=== PATIENT | female | born 1995 | race Caucasian/White ===

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

== ENCOUNTER 2018-10-27 19:09 | Emergency (ER) | payer BC, OTHER ==
[~2018-10-27] VITALS: Ht 157.5 cm; Wt 112.0 kg
[2018-10-27 19:13] VITALS: BP 134/78
--- NOTE | 2018-10-27 19:27 | NUR ---
23 Y/O F PRESENTED TO ED WITH C/O GENERALIZED ABDOMINAL PAIN WITH N/V FOR X3 DAYS. 5/10 PAIN, ACHING. AAOX4. PER PT "I'VE BEEN TO ER THREE TIMES ALREADY AND NOTHING THEY GAVE ME IS WORKING." PT SELF MEDICATED WITH ZOFRAN WITH NO RELIEF. ABDOMEN SOFT AND NON-TENDER. BOWEL SOUNDS PRESENTS [id number]. FAMILY AT BEDSIDE. BEDRAILS X2 UP. GURNEY IN LOCKED POSTION. WILL CONTINUE TO MONITOR.
[2018-10-27] MEDS ORDERED: NACL 0.9% 1,000 ML IV ONE (20:16)
[2018-10-27] MEDS ORDERED: ONDANSETRON 4 MG/2 ML VIAL IVP ONE (20:20)
[2018-10-27 20:49] LABS: BASOPHILS % (AUTO) 0.3 % (0.0-2.0); EOSINOPHILS # (AUTO) 0.1 K/uL (0-0.4); EOSINOPHILS % (AUTO) 0.5 % (0.0-4.0); HEMATOCRIT 40.6 % (36-48); HEMOGLOBIN 13.6 g/dL (12.0-16.0); LYMPHOCYTES # (AUTO) 2.6 K/uL (2.5-16.5); LYMPHOCYTES % (AUTO) 18.7 % (20.5-51.1); MEAN CORPUSCULAR HEMOGLOBIN 26 pg (27-31); MEAN CORPUSCULAR HGB CONC 33 g/dL (33-37); MEAN CORPUSCULAR VOLUME 78.3 fL (80-94); MONOCYTES # (AUTO) 0.7 K/uL (0.8-1.0); MONOCYTES % (AUTO) 5.1 % (1.7-9.3); NEUTROPHILS # (AUTO) 10.3 K/uL (1.8-7.7); NEUTROPHILS % (AUTO) 75.4 % (42.2-75.2); PLATELET COUNT (AUTO) 334 K/uL (140-450); RED BLOOD CELL COUNT(AUTO) 5.19 MIL/uL (4.20-5.40); RED CELL DISTRIBUTION WIDTH 13.6 % (11.6-13.7); WHITE BLOOD COUNT (AUTO) 13.7 K/uL (4.8-10.8)
--- NOTE | 2018-10-27 20:50 | NUR ---
PT UNABLE TO PROVIDE URINE SAMPLE. DR. GOMEZ MADE AWARE AND GAVE PERMISSION TO RUN FLUIDS FIRST.
[2018-10-27 21:04] LABS: ANION GAP 16.7 (8-16); CREATININE 0.9 mg/dL (0.6-1.3); POTASSIUM 3.7 mmol/L (3.5-5.1)
[2018-10-27 21:10] LABS: ALBUMIN 3.9 g/dL (3.4-5.0); TOTAL BILIRUBIN 0.7 mg/dL (0.0-1.0)
--- NOTE | 2018-10-27 21:30 | NUR ---
PT ABLE TO PROVIDE URINE SAMPLE. SAMPLE SENT TO LAB.
[2018-10-27 21:55] LABS: APPEARANCE,URINE CLEAR (CLEAR); BILIRUBIN,URINE 1+ (NEGATIVE); BLOOD, URINE TRACE-L (NEGATIVE); COLOR,URINE YELLOW (YELLOW); LEUKOCYTE ESTERASE ,URINE TRACE (NEGATIVE); NITRITE, URINE NEGATIVE (NEGATIVE); UGLUCOSE NEGATIVE (NEGATIVE)
[2018-10-27 22:02] LABS: BARBITURATE, URINE NEG. ng/ml (NEG <=200); BENZODIAZEPINE, URINE NEG. ng/mL (NEG <=200); CANNABINOID, URINE NEG. ng/mL (NEG <=50); COCAINE, URINE NEG. ng/mL (NEG <=300); OPIATE, URINE NEG. ng/mL (NEG <=2000); PHENCYCLIDINE SCREEN,URINE NEG. ng/mL (NEG <=25); RBC,URINE 0-5 /HPF (0-5); WBC,URINE 0-5 /HPF (0-5)
[2018-10-27 22:03] LABS: URINE AMORPHOUS URATE 1+ /HPF (None Seen)
[2018-10-27 22:40] VITALS: BP 130/85
--- NOTE | 2018-10-27 22:40 | NUR ---
Patient discharged with v/s stable. Written and verbal after care instructions given and explained. Patient alert, oriented and verbalized understanding of instructions. Ambulatory with steady gait. All questions addressed prior to discharge. ID band removed. Patient advised to follow up with PMD. Rx of ZOFRAN WAS given. Patient educated on indication of medication including possible reaction and side effects. Opportunity to ask questions provided and answered.
== END 2018-10-27 22:40 | disposition home or self-care (01) ==
LOC: MED 19:09
DX: R11.2 Nausea with vomiting, unspecified (principal); F41.1 Generalized anxiety disorder; J45.909 Unspecified asthma, uncomplicated; R50.9 Fever, unspecified; F12.10 Cannabis abuse, uncomplicated
CPT/HCPCS: 36415; 80053; 80305; 81001; 81025; 83690; 85025; 96361; 96374; 99283; J2405; J7030

== ENCOUNTER 2018-11-06 01:08 | Emergency (ER) | payer BC ==
[~2018-11-06] VITALS: Ht 157.5 cm; Wt 111.1 kg
[2018-11-06 01:10] VITALS: BP 126/83
--- NOTE | 2018-11-06 01:19 | NUR ---
EKG PERFORMED AT BEDSIDE
[2018-11-06 01:23] VITALS: BP 126/83
--- NOTE | 2018-11-06 01:23 | NUR ---
23 Y/O F PRESENTED TO ED WITH C/O DIFFICULTY BREATHING AND CHEST PAIN SUDDEN ONSET X3 HOURS. AAOX4. PER PT "FEELS LIKE SOMEONE IS SITTING ON MY CHEST." 7/10 PAIN, PRESSURE AND STABBING SENSATION. O2 SATURATION MAINTAINED AT 99% ON ROOM AIR. BILATERAL LUNG MARKHAM CLEAR THROUGHOUT. PT TACHYCARDIC WITH HR AT 103. HOB ELEVATED FOR COMFORT. FAMILY AT BEDSIDE. PT PUT ON MONITORING SYSTEM. BED IN LOWEST POSITION WITH BEDRAILX1 UP. WILL CONTINUE TO MONITOR.
[2018-11-06] MEDS ORDERED: KETOROLAC 60 MG/2 ML VIAL IM ONE ×2 (01:25→01:37)
[2018-11-06] MEDS ORDERED: IBUPROFEN 800 MG TAB PO ONE (01:30)
--- NOTE | 2018-11-06 02:51 | NUR ---
DR. MALAVE AT BEDSIDE EVALUATING PT
== END 2018-11-06 03:05 | disposition home or self-care (01) ==
LOC: MED 01:08
DX: R07.89 Other chest pain (principal); J45.909 Unspecified asthma, uncomplicated; F41.9 Anxiety disorder, unspecified; F32.9 Major depressive disorder, single episode, unspecified
CPT/HCPCS: 93005; 99283; J1885

== ENCOUNTER 2018-11-14 12:04 | Emergency (ER) | payer BC ==
[~2018-11-14] VITALS: Ht 157.5 cm; Wt 112.9 kg
[2018-11-14 12:19] VITALS: BP 127/76
--- NOTE | 2018-11-14 12:23 | NUR ---
PT TO [facility] MAE. AA0X4. VSS AT THIS TIME.
--- NOTE | 2018-11-14 13:44 | NUR ---
Patient ambulated to bed 7
--- NOTE | 2018-11-14 13:58 | NUR ---
PT BIB FRIEND C/O COUGH AND CHEST TIGHTNESS X 1 WEEK. PATIENT STATES THIS AM HER SPUTUM WAS BLOOD TINGED AND HER THROAT FEELS TIGHT. RR EVEN AND NON-LABORED, BREATH SOUNDS CLEAR, AIRWAY PATENT, CAP REFIL <2 SEC, NO EDEMA. VSS. ER MD TO SEE PT. PMH- ANXIETY, DEPRESSION, ASTHMA
[2018-11-14 14:42] VITALS: BP 130/80
== END 2018-11-14 14:42 | disposition home or self-care (01) ==
LOC: MED 12:04
DX: J45.909 Unspecified asthma, uncomplicated (principal); F43.9 Reaction to severe stress, unspecified
CPT/HCPCS: 99283

== ENCOUNTER 2018-12-17 11:46 | Emergency (ER) | payer BC, MEDICAID ==
[~2018-12-17] VITALS: Ht 157.5 cm; Wt 107.6 kg
[2018-12-17 11:52] VITALS: BP 127/75
[2018-12-17] MEDS ORDERED: ONDANSETRON 4 MG/2 ML VIAL IVP ONE (13:05)
[2018-12-17] MEDS ORDERED: NACL 0.9% 1,000 ML IV ONE (13:05)
[2018-12-17 15:13] VITALS: BP 122/73
== END 2018-12-17 15:13 | disposition home or self-care (01) ==
LOC: MED 11:46
DX: K31.84 Gastroparesis (principal); J45.909 Unspecified asthma, uncomplicated
CPT/HCPCS: 81002; 81025; 96361; 96374; 99283; J2405; J7030

== ENCOUNTER 2019-09-19 23:06 | Emergency (ER) | payer OTHER, SELFPAY ==
[~2019-09-19] VITALS: Ht 157.5 cm; Wt 112.9 kg
--- NOTE | 2019-09-19 23:13 | NUR ---
pt ambulated to bed 8. pt wearing face mask.
[2019-09-19 23:16] VITALS: BP 141/92
--- NOTE | 2019-09-19 23:27 | NUR ---
DR. CORONEL AT BEDSIDE FOR EVALUATION.
--- NOTE | 2019-09-19 23:27 | NUR ---
24 Y/O FEMALE PRESENTED TO ED C/O HEMATURIA X 1 DAY. PT STATES SHE HAS HAD V/D X 5 DAYS W/ MUCUS IN THE [place]. PT STATES SHE HAS AN INTERMITTENT COUGH . PT DENIES SOB/ABD PAIN/DYSURIA/BACKPAIN. PT STATES SHE TESTED + FOR COVID. PT DENIES FEVER/CHILLS. LMP 08/29/19. PT BREATHING EVEN AND UNLABORED. A/O X4. PT RESTING IN BED , LOCKED AND IN LOWEST POSITION, HOB ELEVATED, SIDE RAIL X1. HX: DEPRESSION, BIPOLAR, ANXIETY, ASTHMA, +COVID19 NKA
--- NOTE | 2019-09-19 23:36 | NUR ---
LAB AT BEDSIDE.
[2019-09-19 23:52] LABS: BASOPHILS % (AUTO) 0.3 % (0.0-2.0); EOSINOPHILS % (AUTO) 0.1 % (0.0-4.0); HEMATOCRIT 36.3 % (36-48); LYMPHOCYTES # (AUTO) 1.8 K/uL (2.5-16.5); LYMPHOCYTES % (AUTO) 15.9 % (20.5-51.1); MEAN CORPUSCULAR HEMOGLOBIN 27 pg (27-31); MEAN CORPUSCULAR HGB CONC 33 g/dL (33-37); MEAN CORPUSCULAR VOLUME 82.3 fL (80-94); MONOCYTES # (AUTO) 0.7 K/uL (0.8-1.0); NEUTROPHILS # (AUTO) 8.6 K/uL (1.8-7.7); NEUTROPHILS % (AUTO) 77.7 % (42.2-75.2); PLATELET COUNT (AUTO) 234 K/uL (140-450); RED BLOOD CELL COUNT(AUTO) 4.41 MIL/uL (4.20-5.40); RED CELL DISTRIBUTION WIDTH 13.1 % (11.6-13.7); WHITE BLOOD COUNT (AUTO) 11.1 K/uL (4.8-10.8)
--- NOTE | 2019-09-19 23:55 | NUR ---
PT TAKEN TO CT
--- NOTE | 2019-09-20 00:02 | NUR ---
PT RETURN FROM CT
[2019-09-20 00:04] LABS: ANION GAP 13.4 (8-16); POTASSIUM 3.4 mmol/L (3.5-5.1); TOTAL BILIRUBIN 0.5 mg/dL (0.0-1.0)
[2019-09-20 00:15] LABS: PROTHROMBIN TIME 8.9 secs (10.8-13.4)
[2019-09-20 00:35] LABS: APPEARANCE,URINE CLOUDY (CLEAR); BILIRUBIN,URINE 2+ (NEGATIVE); BLOOD, URINE 1+ (NEGATIVE); COLOR,URINE ORANGE (YELLOW); LEUKOCYTE ESTERASE ,URINE NEGATIVE (NEGATIVE); NITRITE, URINE POSITIVE (NEGATIVE); UGLUCOSE NEGATIVE (NEGATIVE)
[2019-09-20 00:48] LABS: RBC,URINE 0-5 /HPF (0-5); WBC,URINE 0-5 /HPF (0-5)
[2019-09-20 00:49] LABS: URINE AMORPHOUS URATE 4+ /HPF (None Seen)
[2019-09-20 01:35] VITALS: BP 141/92
--- NOTE | 2019-09-20 01:35 | NUR ---
Patient discharged with v/s stable. Written and verbal after care instructions given and explained. Patient alert, oriented and verbalized understanding of instructions. Ambulatory with steady gait. All questions addressed prior to discharge. ID band removed. Patient advised to follow up with PMD. Rx of BACTRIM AND AZITHROMYCIN given. Patient educated on indication of medication including possible reaction and side effects. Opportunity to ask questions provided and answered.
== END 2019-09-20 01:35 | disposition home or self-care (01) ==
LOC: EEVIPCON 23:06 → MED 23:06
DX: N39.0 Urinary tract infection, site not specified (principal); F41.9 Anxiety disorder, unspecified; F32.9 Major depressive disorder, single episode, unspecified; J18.1 Lobar pneumonia, unspecified organism; J45.909 Unspecified asthma, uncomplicated
CPT/HCPCS: 36415; 80053; 81001; 85025; 85610; 85730; 99283; 99284

== ENCOUNTER 2019-09-21 13:44 | Emergency (ER) | payer OTHER, SELFPAY ==
[~2019-09-21] VITALS: Ht 157.5 cm; Wt 112.9 kg
[2019-09-21 13:59] VITALS: BP 116/57
[2019-09-21] MEDS ORDERED: IBUPROFEN 600 MG TAB PO STA (14:11)
[2019-09-21] MEDS ORDERED: ACETAMINOPHEN EXTRA STRENGTH 500 MG TAB PO STA (14:11)
--- NOTE | 2019-09-21 14:12 | NUR ---
DR. BRAR EVALUATING PT AT BEDSIDE
[2019-09-21] MEDS ORDERED: NACL 0.9% 1,000 ML IV ONE (14:20)
--- NOTE | 2019-09-21 14:30 | NUR ---
24/F C/O C/O INCREASED SOB, FEVER, N/V/D, BODY ACHES, CHILLS X 1 WEEK PT TESTED + FOR COVID-19 ON SEPTEMBER 13 LAST TIME VOMITUS AND DIARRHEA TODAY. NAD, AOX4 ON BEDSIDE MONITOR. MEDHX: DENIES
--- NOTE | 2019-09-21 14:52 | NUR ---
SUBMARINE WORKER AT BEDSIDE FOR BLOOD DRAW
--- NOTE | 2019-09-21 14:53 | NUR ---
PT AWARE OF NEED FOR URINE SAMPLE COLLECTION
[2019-09-21 15:11] LABS: BASOPHILS % (AUTO) 0.1 % (0.0-2.0); HEMOGLOBIN 11.6 g/dL (12.0-16.0); LYMPHOCYTES # (AUTO) 0.7 K/uL (2.5-16.5); LYMPHOCYTES % (AUTO) 5.6 % (20.5-51.1); MEAN CORPUSCULAR HEMOGLOBIN 27 pg (27-31); MEAN CORPUSCULAR HGB CONC 33 g/dL (33-37); MEAN CORPUSCULAR VOLUME 82.3 fL (80-94); MONOCYTES # (AUTO) 0.6 K/uL (0.8-1.0); MONOCYTES % (AUTO) 5.4 % (1.7-9.3); NEUTROPHILS # (AUTO) 10.7 K/uL (1.8-7.7); NEUTROPHILS % (AUTO) 88.9 % (42.2-75.2); PLATELET COUNT (AUTO) 285 K/uL (140-450); RED BLOOD CELL COUNT(AUTO) 4.25 MIL/uL (4.20-5.40); RED CELL DISTRIBUTION WIDTH 12.6 % (11.6-13.7)
[2019-09-21 15:25] LABS: PROTHROMBIN TIME 9.5 secs (10.8-13.4)
[2019-09-21] MEDS ORDERED: AMOXIL/CLAVULANATE 875/125 MG 1 TAB PO ONE (15:25)
[2019-09-21] MEDS ORDERED: AZITHROMYCIN 250 MG TAB PO ONE (15:25)
[2019-09-21 15:37] LABS: ANION GAP 19.4 (8-16); POTASSIUM 3.4 mmol/L (3.5-5.1)
--- NOTE | 2019-09-21 16:07 | NUR ---
IV removed, catheter intact and site benign. Applied folded 4x4 gauze and tape to stop bleeding.
[2019-09-21 16:08] VITALS: BP 108/46
--- NOTE | 2019-09-21 16:08 | NUR ---
Patient discharged with v/s stable. Written and verbal after care instructions given and explained. Patient alert, oriented and verbalized understanding of instructions. Ambulatory with steady gait. All questions addressed prior to discharge. ID band removed. Patient advised to follow up with PMD. Rx of Albuterol and Augmentin 875mg given. Patient educated on indication of medication including possible reaction and side effects. Opportunity to ask questions provided and answered.
== END 2019-09-21 16:08 | disposition home or self-care (01) ==
LOC: MED 13:44
DX: J12.9 Viral pneumonia, unspecified (principal); J45.909 Unspecified asthma, uncomplicated; Z20.828 Contact with and (suspected) exposure to other viral communicable diseases
CPT/HCPCS: 36415; 71045; 80048; 82728; 83605; 83615; 84484; 85025; 85379; 85384; 85610; 85730; 86140; 87040; 93005; 99285; Q0092; J7030

== ENCOUNTER 2021-03-07 03:10 | Emergency (ER) | payer OTHER, SELFPAY ==
[~2021-03-07] VITALS: Ht 157.5 cm; Wt 119.3 kg
[2021-03-07 03:16] VITALS: BP 145/100
--- NOTE | 2021-03-07 03:30 | NUR ---
SEEN AND EXAMINED BY ANDREA
[2021-03-07] MEDS ORDERED: CODE5SYR5 PO (03:51)
[2021-03-07] MEDS ORDERED: BENZ200C4 PO (03:52)
[2021-03-07 03:59] VITALS: BP 145/100
--- NOTE | 2021-03-07 03:59 | NUR ---
Patient discharged with v/s stable. Written and verbal after care instructions given and explained. Patient alert, oriented and verbalized understanding of instructions. Ambulatory with steady gait. All questions addressed prior to discharge. ID band removed. Patient advised to follow up with PMD. Rx of PROMETH-CODEIN, BENZONATATE given. Patient educated on indication of medication including possible reaction and side effects. Opportunity to ask questions provided and answered.
== END 2021-03-07 03:59 | disposition home or self-care (01) ==
LOC: MED 03:10
DX: J06.9 Acute upper respiratory infection, unspecified (principal)
CPT/HCPCS: 99283

== ENCOUNTER 2021-03-25 01:58 | Emergency (ER) | payer OTHER, SELFPAY ==
[~2021-03-25] VITALS: Ht 157.5 cm; Wt 118.4 kg
[~2021-03-25 01:58] MED LIST: BENZ200C4 PO; CODE5SYR5 PO
[2021-03-25 02:13] VITALS: BP 155/78
[2021-03-25] MEDS: KETOROLAC 60 MG/2 ML VIAL IM ONE (02:26)
[2021-03-25] MEDS ORDERED: IBUP-2213 PO (03:15)
== END 2021-03-25 04:27 | disposition home or self-care (01) ==
LOC: MED 01:58
DX: M54.50 Low back pain, unspecified (principal); J45.909 Unspecified asthma, uncomplicated; F17.200 Nicotine dependence, unspecified, uncomplicated; Z79.899 Other long term (current) drug therapy
CPT/HCPCS: 72100; 81002; 81025; 96372; 99283; J1885

== ENCOUNTER 2021-04-14 14:18 | Emergency (ER) | payer OTHER ==
[~2021-04-14 14:18] MED LIST changes: +IBUP-2213 PO
--- NOTE | 2021-04-14 15:00 | NUR ---
CALLEDX1. NO SHOW
--- NOTE | 2021-04-14 15:15 | NUR ---
CALLEDX2. NO SHOW
--- NOTE | 2021-04-14 15:30 | NUR ---
CALLEDX3. NO SHOW
--- NOTE | 2021-04-14 15:32 | NUR ---
CALLED [phone]. PT STATED SHE DON'T WANT TO SEE DOCTOR AT THIS TIME.
--- NOTE | 2021-04-14 15:34 | NUR ---
PATIENT LEFT WITHOUT BEING TRIAGE. NO FURTHER CARE PROVIDED FOR PATIENT.
== END 2021-04-14 15:34 | disposition left against medical advice (07) ==
LOC: MED 14:18
DX: T63.301A Toxic effect of unspecified spider venom, accidental (unintentional), initial encounter (principal); Z53.21 Procedure and treatment not carried out due to patient leaving prior to being seen by health care provider; Y92.89 Other specified places as the place of occurrence of the external cause

== ENCOUNTER 2021-08-15 08:50 | Emergency (ER) | payer OTHER ==
[~2021-08-15] VITALS: Ht 157.5 cm; Wt 117.7 kg
[2021-08-15 08:58] VITALS: BP 141/93
--- NOTE | 2021-08-15 09:04 | NUR ---
PT AMB TO BED 1.
--- NOTE | 2021-08-15 09:14 | NUR ---
26 Y/ FEMALE C/O COUGH, HEADACHE, SORE THROAT, N/V/D X 3 DAYS. DENIES FEVER/CHILLS. PMH: ASTHMA NKA
--- NOTE | 2021-08-15 09:49 | NUR ---
DR. MALAVE AT PT BEDSIDE FOR FURTHER EVALUATION.
[2021-08-15] MEDS ORDERED: KETOROLAC 30 MG/ML VIAL IVP ONE (09:50)
[2021-08-15] MEDS ORDERED: ONDANSETRON 4 MG/2 ML VIAL IVP ONE (09:50)
[2021-08-15] MEDS ORDERED: NACL 0.9% 1,000 ML IV ONE (09:50)
--- NOTE | 2021-08-15 10:03 | NUR ---
FABIENNE JIMENEZ AND SANDRA Disla&Jaycob WALKED TO LAB.
[2021-08-15] MEDS ORDERED: KETOROLAC 60 MG/2 ML VIAL IM ONE (10:15)
[2021-08-15] MEDS ORDERED: ONDANSETRON 4 MG ODT PO ONE (10:15)
[2021-08-15] MEDS ORDERED: ONDA8TAB87 PO (11:09)
[2021-08-15] MEDS ORDERED: IBUP-2213 PO (11:09)
[2021-08-15 11:12] VITALS: BP 141/93
--- NOTE | 2021-08-15 11:12 | NUR ---
Patient discharged with v/s stable. Written and verbal after care instructions given and explained. Patient alert, oriented and verbalized understanding of instructions. Ambulatory with steady gait. All questions addressed prior to discharge. ID band removed. Patient advised to follow up with PMD. Rx of ZOFRAN AND MOTRIN given. Patient educated on indication of medication including possible reaction and side effects. Opportunity to ask questions provided and answered.
== END 2021-08-15 11:12 | disposition home or self-care (01) ==
LOC: MED 08:50
DX: R11.2 Nausea with vomiting, unspecified (principal); Z20.822 Contact with and (suspected) exposure to COVID-19; R19.7 Diarrhea, unspecified; R05.9 Cough, unspecified; J34.89 Other specified disorders of nose and nasal sinuses; R50.9 Fever, unspecified; M79.18 Myalgia, other site; J45.909 Unspecified asthma, uncomplicated; Z79.1 Long term (current) use of non-steroidal anti-inflammatories (NSAID); Z79.899 Other long term (current) drug therapy
CPT/HCPCS: 81002; 81025; 87426; 87804; 99283; Q0162; J1885; J2405

== ENCOUNTER 2021-12-28 23:08 | Emergency (ER) | payer OTHER ==
[~2021-12-28] VITALS: Ht 157.5 cm; Wt 116.8 kg
[~2021-12-28 23:08] MED LIST changes: +ONDA8TAB87 PO
[2021-12-28 23:16] VITALS: BP 151/92
--- NOTE | 2021-12-28 23:20 | NUR ---
PT TO BED 1. ANDREA GOMEZ AND GENET PALACIO MADE AWARE.
[2021-12-28] MEDS ORDERED: NACL 0.9% 1,000 ML IV ONE (23:25)
--- NOTE | 2021-12-28 23:27 | NUR ---
Patient stated she is "prescribed 125 mg of seroquil, but took 150 mg of seroquil with alcohol" Addendum: 12/28/21 at 2328 by [id number] Patient stated she is "prescribed 125 mg of seroquil, but took 150 mg of seroquil with alcohol." Dr. Mayer at bedside for assessment.
--- NOTE | 2021-12-28 23:28 | NUR ---
Poison Control called at .
--- NOTE | 2021-12-28 23:34 | NUR ---
Poison Control called at . Pharmacist Balaji Haynes answered and was given report. Pharmacist Balaji Haynes stated dose taken "is not lethal, continue to monitor." Dr. Mayer verbally informed and Dr. Mayer verbalized understanding.
[2021-12-29 00:06] LABS: BASOPHILS % (AUTO) 0.5 % (0.0-2.0); EOSINOPHILS # (AUTO) 0.4 K/uL (0-0.4); EOSINOPHILS % (AUTO) 5.1 % (0.0-4.0); HEMATOCRIT 38.9 % (36-48); HEMOGLOBIN 13.2 g/dL (12.0-16.0); LYMPHOCYTES # (AUTO) 2.8 K/uL (2.5-16.5); MEAN CORPUSCULAR HEMOGLOBIN 29 pg (27-31); MEAN CORPUSCULAR HGB CONC 34 g/dL (33-37); MONOCYTES # (AUTO) 0.4 K/uL (0.8-1.0); MONOCYTES % (AUTO) 4.3 % (1.7-9.3); NEUTROPHILS # (AUTO) 4.8 K/uL (1.8-7.7); NEUTROPHILS % (AUTO) 57.1 % (42.2-75.2); PLATELET COUNT (AUTO) 273 K/uL (140-450); RED BLOOD CELL COUNT(AUTO) 4.63 MIL/uL (4.20-5.40); RED CELL DISTRIBUTION WIDTH 13.1 % (11.6-13.7); WHITE BLOOD COUNT (AUTO) 8.3 K/uL (4.8-10.8)
--- NOTE | 2021-12-29 00:30 | NUR ---
Patient resting comfortably in bed, A/Ox4, chest rise and fall symmetrical, no c/o pain or s/s of discomfort. Patient resting with eyes closed.
[2021-12-29 00:33] LABS: ALBUMIN 3.8 g/dL (3.4-5.0); ANION GAP 16.4 (8-16); ASPARTATE AMINOTRANSFERASE 39 U/L (15-37); CARBON DIOXIDE 26.2 mmol/L (21-32); CHLORIDE 105 mmol/L (98-107); CREATININE 0.7 mg/dL (0.6-1.3); GFR ARICAN-AMERICAN 132 mL/min (>90); GLUCOSE 90 mg/dL (74-106); POTASSIUM 3.6 mmol/L (3.5-5.1); SODIUM SERUM 144 mmol/L (136-145); TOTAL BILIRUBIN 0.3 mg/dL (0.0-1.0); UREA NITROGEN, BLOOD 8 mg/dL (7-18)
[2021-12-29 00:35] LABS: ACETAMINOPHEN < 0.5 ug/ml (10-30); SALICYLATE < 2.8 mg/dL (2.8-20.0)
--- NOTE | 2021-12-29 02:00 | NUR ---
Patient resting comfortably in bed, A/Ox4, chest rise and fall symmetrical, no c/o pain or s/s of discomfort. Patient resting with eyes closed.
[2021-12-29 02:45] VITALS: BP 125/84
--- NOTE | 2021-12-29 02:45 | NUR ---
Patient discharged with v/s stable. Written and verbal after care instructions given and explained. Patient verbalized understanding. Ambulatory with steady gait. All questions addressed prior to discharge. Advised to follow up with PMD.
[2021-12-29 03:34] LABS: BARBITURATE, URINE NEGATIVE ng/ml (NEG <=200); BENZODIAZEPINE, URINE NEGATIVE ng/mL (NEG <=200); CANNABINOID, URINE NEGATIVE ng/mL (NEG <=50); COCAINE, URINE NEGATIVE ng/mL (NEG <=300); OPIATE, URINE NEGATIVE ng/mL (NEG <=2000); PHENCYCLIDINE SCREEN,URINE NEGATIVE ng/mL (NEG <=25)
== END 2021-12-29 02:45 | disposition home or self-care (01) ==
LOC: MED 23:08
DX: F10.129 Alcohol abuse with intoxication, unspecified (principal); J45.909 Unspecified asthma, uncomplicated; T43.591A Poisoning by other antipsychotics and neuroleptics, accidental (unintentional), initial encounter; Y92.89 Other specified places as the place of occurrence of the external cause
CPT/HCPCS: 36415; 80053; 80305; 83735; 84702; 85025; 93005; 96360; 99284; G0480; G0482; J7030

== ENCOUNTER 2022-01-11 15:53 | Emergency (ER) | payer OTHER ==
[~2022-01-11] VITALS: Ht 157.5 cm; Wt 116.3 kg
[2022-01-11 16:16] VITALS: BP 144/94
[2022-01-11] MEDS ORDERED: FAMOTIDINE 20 MG/2 ML VIAL IVP ONE (16:40)
[2022-01-11] MEDS ORDERED: NACL 0.9% 1,000 ML IV ONE (16:40)
[2022-01-11] MEDS ORDERED: ONDANSETRON 4 MG/2 ML VIAL IVP ONE (16:40)
[2022-01-11 17:14] LABS: BASOPHILS % (AUTO) 0.5 % (0.0-2.0); EOSINOPHILS # (AUTO) 0.3 K/uL (0-0.4); EOSINOPHILS % (AUTO) 3.4 % (0.0-4.0); HEMATOCRIT 38.4 % (36-48); HEMOGLOBIN 12.9 g/dL (12.0-16.0); LYMPHOCYTES # (AUTO) 2.1 K/uL (2.5-16.5); LYMPHOCYTES % (AUTO) 21.7 % (20.5-51.1); MEAN CORPUSCULAR HEMOGLOBIN 28 pg (27-31); MEAN CORPUSCULAR HGB CONC 34 g/dL (33-37); MEAN CORPUSCULAR VOLUME 83.5 fL (80-94); MONOCYTES # (AUTO) 0.7 K/uL (0.8-1.0); MONOCYTES % (AUTO) 7.4 % (1.7-9.3); NEUTROPHILS # (AUTO) 6.5 K/uL (1.8-7.7); PLATELET COUNT (AUTO) 267 K/uL (140-450); RED BLOOD CELL COUNT(AUTO) 4.59 MIL/uL (4.20-5.40); RED CELL DISTRIBUTION WIDTH 12.7 % (11.6-13.7); WHITE BLOOD COUNT (AUTO) 9.7 K/uL (4.8-10.8)
[2022-01-11 17:38] LABS: ANION GAP 13.6 (8-16); CARBON DIOXIDE 29.1 mmol/L (21-32); CREATININE 0.9 mg/dL (0.6-1.3); POTASSIUM 4.7 mmol/L (3.5-5.1); TOTAL BILIRUBIN 0.4 mg/dL (0.0-1.0)
[2022-01-11 17:44] LABS: ALBUMIN 3.5 g/dL (3.4-5.0)
[2022-01-11] MEDS ORDERED: ONDA-188 SL (17:46)
[2022-01-11] MEDS ORDERED: FAMO-90 PO (17:46)
[2022-01-11 18:21] VITALS: BP 108/79
--- NOTE | 2022-01-11 18:23 | NUR ---
PATIENT LEFT ED WITH STEADY GAIT, VERBALIZED UNDERSTANDING OF HEALTH TEACHINGS. IV DISCONTINUED WITH CATHETER INTACT.
== END 2022-01-11 18:21 | disposition home or self-care (01) ==
LOC: MED 15:53
DX: K29.70 Gastritis, unspecified, without bleeding (principal); R11.2 Nausea with vomiting, unspecified; J45.909 Unspecified asthma, uncomplicated; Z79.899 Other long term (current) drug therapy
CPT/HCPCS: 36415; 71045; 80053; 83690; 84484; 85025; 93005; 96361; 96374; 96375; 99285; J2405; J3490; Q0092; J7030

== ENCOUNTER 2022-03-08 10:55 | Emergency (ER) | payer OTHER ==
[~2022-03-08] VITALS: Ht 157.5 cm; Wt 115.7 kg
[~2022-03-08 10:55] MED LIST changes: +FAMO-90 PO; +ONDA-188 SL
[2022-03-08 11:12] VITALS: BP 140/69
--- NOTE | 2022-03-08 11:18 | NUR ---
PATIENT AMBULATED TO BED 06 WITH STEADY/EVEN GAIT.
--- NOTE | 2022-03-08 11:21 | NUR ---
27/F C/O 1 EPISODE OF HEMATEMESIS AT WORK. PT STATES BLOOD-TINGED EMESIS. PATIENT A&OX4, AMBULATORY, STATES DRANK 8 SHOTS LAST NIGHT, EXPERIENCED 1 EPISODE OF VOMITING OF "YELLOW MUCUS WITH LIGHT-RED RIBBONS OF BLOOD WITH VOMIT" AFTER COUGHING AT 0930. PT DENIES ABDOMINAL PAIN, CHEST PAIN NAUSEA, DIARRHEA, CONSTIPTAION, TRAUMA, INJURY, DYSURIA, FEVER, CHILLS. DENIES OTC MEDS PRIOR TO ARRIVAL. PMH: ASTHMA, DEPRESSION, BIPOLAR, ANXIETY MEDS: PROZAC, VRAYLAR, SEROQUEL, ATIVAN NKDA SX: DENIES
[2022-03-08] MEDS ORDERED: ONDANSETRON 4 MG ODT PO ONE (11:30)
--- NOTE | 2022-03-08 11:33 | NUR ---
Lab at bedside
[2022-03-08 11:54] LABS: BASOPHILS # (AUTO) 0.1 K/uL (0.00-0.22); BASOPHILS % (AUTO) 0.5 % (0.0-2.0); EOSINOPHILS # (AUTO) 0.1 K/uL (0-0.4); EOSINOPHILS % (AUTO) 1.4 % (0.0-4.0); HEMATOCRIT 38.4 % (36-48); LYMPHOCYTES # (AUTO) 2.6 K/uL (2.5-16.5); LYMPHOCYTES % (AUTO) 25.8 % (20.5-51.1); MEAN CORPUSCULAR HEMOGLOBIN 28 pg (27-31); MEAN CORPUSCULAR HGB CONC 34 g/dL (33-37); MEAN CORPUSCULAR VOLUME 83.5 fL (80-94); MONOCYTES # (AUTO) 0.4 K/uL (0.8-1.0); MONOCYTES % (AUTO) 4.4 % (1.7-9.3); NEUTROPHILS # (AUTO) 6.8 K/uL (1.8-7.7); NEUTROPHILS % (AUTO) 67.9 % (42.2-75.2); PLATELET COUNT (AUTO) 286 K/uL (140-450); RED CELL DISTRIBUTION WIDTH 13.2 % (11.6-13.7); WHITE BLOOD COUNT (AUTO) 10.1 K/uL (4.8-10.8)
--- NOTE | 2022-03-08 11:58 | NUR ---
RAD at bedside
[2022-03-08 12:08] LABS: ANION GAP 12.1 (8-16); CARBON DIOXIDE 26.9 mmol/L (21-32); CREATININE 0.8 mg/dL (0.6-1.3)
--- NOTE | 2022-03-08 12:18 | NUR ---
Patient resting in position of comfort. States + relief to nausea. Denies nausea at this time. All pt needs met. Bed locked in lowest position, side rails x 1.
[2022-03-08] MEDS ORDERED: ONDA-188 PO (12:30)
--- NOTE | 2022-03-08 12:56 | NUR ---
Patient discharged with v/s stable. Written and verbal after care instructions given and explained. Patient alert, oriented and verbalized understanding of instructions. Ambulatory with steady gait. All questions addressed prior to discharge. ID band removed. Patient advised to follow up with PMD. Rx of Zofran ODT given. Patient educated on indication of medication including possible reaction and side effects. Opportunity to ask questions provided and answered. Copies of RAD, blood work given to patient. Work note provided.
== END 2022-03-08 12:56 | disposition home or self-care (01) ==
LOC: MED 10:55
DX: K92.0 Hematemesis (principal); J45.909 Unspecified asthma, uncomplicated
CPT/HCPCS: 36415; 71045; 80048; 84703; 85025; 99284; Q0162